=== PATIENT | male | born 1955 | race Caucasian/White ===

== ENCOUNTER 2017-06-05 06:36 | Emergency (ER) | payer OTHER ==
[~2017-06-05] VITALS: Ht 170.2 cm; Wt 72.0 kg
[~2017-06-05 06:36] MED LIST: ASPI-664 PO; CARV3.12 PO; FER325 PO
[2017-06-05 06:50] VITALS: Ht 170.2 cm; Wt 72.0 kg
[2017-06-05] MEDS ORDERED: SOD CHLORIDE 0.9% 1,000 ML IV STA (06:52)
[2017-06-05 07:35] LABS: BASOPHILS % 0.4 % (0.0-2.0); EOSINOPHILS # 0.3 10^3/ul (0.0-0.5); EOSINOPHILS % 3.6 % (0.0-7.0); HEMOGLOBIN 12.6 g/dl (14.0-18.0); LYMPHOCYTES # 1.9 10^3/ul (0.8-2.9); LYMPHOCYTES % 26.4 % (15.0-51.0); MEAN CORPUSCULAR HEMOGLOBIN 26.3 pg (29.0-33.0); MEAN CORPUSCULAR HGB CONC 32.3 g/dl (32.0-37.0); MEAN CORPUSCULAR VOLUME 81.3 fl (82.0-101.0); MEAN PLATELET VOLUME 9.4 fl (7.4-10.4); MONOCYTE # 0.7 10^3/ul (0.3-0.9); NEUTROPHILS % 60.3 % (39.0-77.0); PLATELET COUNT 322 10^3/UL (140-415); WHITE BLOOD COUNT 7.2 10^3/ul (4.8-10.8)
--- NOTE | 2017-06-05 07:42 | RADRPT ---
PROCEDURE: Chest. CLINICAL INDICATION: Chest pain. TECHNIQUE: Single frontal view of the chest was obtained. COMPARISON: 07/02/2016. FINDINGS: Mediasternotomy wires are present. The cardiac silhouette is magnified. The aortic arch is unremar kable. There is no focal consolidation, vascular congestion or pleural effusion. There is no pneum othorax. IMPRESSION: No evidence for active cardiopulmonary disease. .Kurt Conway MD, MD Date Time Electronically viewed and signed by .Kurt Conway MD, on 06/05/2017 07:42 .T/
[2017-06-05 07:57] LABS: ANION GAP 13 (8-16); BLOOD UREA NITROGEN 15 mg/dl (7-20); CALCIUM 8.6 mg/dl (8.4-10.2); CARBON DIOXIDE 25 mmol/L (21-31); CHLORIDE 109 mmol/L (97-110); CREATININE 0.88 mg/dl (0.61-1.24); GLUCOSE 93 mg/dl (70-220); POTASSIUM 3.6 mmol/L (3.5-5.1); SODIUM 143 mmol/L (135-144)
[2017-06-05 08:12] LABS: TROPONIN-I < 0.012 ng/ml (0.00-0.12)
--- NOTE | 2017-06-05 08:25 | ERD ---
ER Documentation Chief Complaint Date/Time DATE: 06/05/17 TIME: 08:24 Chief Complaint pt bib RA from home with c/o palp since 5-6am, found in SVT, converted [employer] HPI Patient is a 62-year-old male with coronary disease and he valvular disease and a history of SVT who presents with SVT. The patient was brought in by ambulance. He was diagnosed with SVT by paramedics and was given adenosine 6 mg IV which did convert him to a sinus rhythm. He was initially having chest pain with the symptoms but now his pain is gone. He felt palpitations. The symptoms started this morning. He does have a primary doctor and stable attendant. ROS All systems reviewed and are negative except as per history of present illness. Medications Home Meds Reported Medications Aspirin (Low Dose Aspirin) 81 Mg Tablet.dr, 81 MG PO DAILY, #30 TAB 03/28/16 Ferrous Sulfate* (Ferrous Sulfate*) 325 Mg Tabec, 325 MG PO DAILY, TAB 03/28/16 Carvedilol* (Coreg*) 3.125 Mg Tablet, 3.125 MG PO BID, #60 TAB 03/28/16 Allergies Allergies: Coded Allergies: No Known Allergy (Unverified , 03/28/16) PMhx/Soc History of Surgery: Yes (CARDIAC ) Hx Cardiac Disorders: Yes (SVT and heart surgery ) Hx Alcohol Use: Yes Hx Substance Use: No Hx Tobacco Use: No Smoking Status: Former smoker FmHx Family History: No diabetes Physical Exam Vitals Vital Signs Date Time Temp Pulse Resp B/P Pulse Ox O2 Delivery O2 Flow Rate FiO2 06/05/17 06:50 98.5 101 21 129/82 97 Physical Exam Const: No acute distress Head: Atraumatic Eyes: Normal Conjunctiva ENT: Normal External Ears, Nose and Mouth. Neck: Full range of motion..~ No meningismus. Resp: Clear to auscultation bilaterally Cardio: Regular rate and rhythm, no murmurs Abd: Soft, non tender, non distended. Normal bowel sounds Skin: No petechiae or rashes Back: No midline or flank tenderness Ext: No cyanosis, or edema Neur: Awake and alert Psych: Normal Mood and Affect Result Diagram: 06/05/17 0788 06/05/17 0727 Results 24 hrs Laboratory Tests Test 06/05/17 07:27 White Blood Count 7.210^3/ul Red Blood Count 4.8010^6/ul Hemoglobin 12.6g/dl Hematocrit 39.0% Mean Corpuscular Volume 81.3fl Mean Corpuscular Hemoglobin 26.3pg Mean Corpuscular Hemoglobin Concent 32.3g/dl Red Cell Distribution Width 16.0% Platelet Count 38601^3/UL Mean Platelet Volume 9.4fl Neutrophils % 60.3% Lymphocytes % 26.4% Monocytes % 9.0% Eosinophils % 3.6% Basophils % 0.4% Nucleated Red Blood Cells % 0.0/100WBC Neutrophils # (Manual) 4.410^3/ul Lymphocytes # 1.910^3/ul Monocytes # 0.710^3/ul Eosinophils # 0.310^3/ul Basophils # 0.010^3/ul Nucleated Red Blood Cells # 0.010^3/ul Sodium Level 143mmol/L Potassium Level 3.6mmol/L Chloride Level 109mmol/L Carbon Dioxide Level 25mmol/L Anion Gap 13 Blood Urea Nitrogen 15mg/dl Creatinine 0.88mg/dl Glucose Level 93mg/dl Calcium Level 8.6mg/dl Magnesium Level 2.0mg/dl Troponin I < 0.012ng/ml Free Thyroxine 1.11ng/dl Current Medications Medications (Trade) Dose Ordered Sig/Maricel Route PRN Reason Start Time Stop Time Status Last Admin Dose Admin Sodium Chloride (NS) 1,000 ml @ 1,000 mls/hr Q1H STAT IV 06/05/17 06:52 06/05/17 07:51 DC 06/05/17 07:10 Procedures/MDM EKG read by me: Rate/Rhythm: Sinus tachycardia at a rate of 103 Intervals: Normal Impression: Sinus tachycardia without ischemia Chest x-ray negative per radiology. Patient is a 62-year-old male who presents with SVT. He was converted by paramedics with adenosine. He feels much better in the emergency department and no longer has symptoms. His laboratory studies are basically normal including a negative troponin and a normal magnesium level and a normal potassium level. I believe outpatient management is appropriate at this time. The patient will need to follow-up closely with his primary doctor within 24-48 hours and can return sooner if symptoms worsen. The patient will be given a copy of his laboratory studies prior to discharge. Departure Diagnosis: Primary Impression: SVT (supraventricular tachycardia) Condition: Fair Patient Instructions: SVT Referrals: PAMELA RUBIN (PCP) Additional Instructions: Call your primary care doctor TOMORROW for an appointment during the next 1-2 days.See the doctor sooner or return here if your condition worsens before your appointment time. DICK HEDRICK MD Jun 05, 2017 08:25
[2017-06-05 08:46] VITALS: BP 126/72; PULSE 94; RESP 21; TEMP 98
== END 2017-06-05 08:48 | disposition home or self-care (01) ==
LOC: E/R 06:36
DX: I47.1 Supraventricular tachycardia (principal); R40.2142 Coma scale, eyes open, spontaneous, at arrival to emergency department; R40.2362 Coma scale, best motor response, obeys commands, at arrival to emergency department; Z79.82 Long term (current) use of aspirin; Z87.891 Personal history of nicotine dependence
CPT/HCPCS: 36415; 71010; 80048; 83735; 84439; 84443; 84484; 85025; 93005; J7030; Z7502

== ENCOUNTER 2017-10-09 09:32 | Emergency (ER) | END 2017-10-09 14:35 | disposition home or self-care (01) ==